=== PATIENT | female | born 1995 | race Two or more races ===

== ENCOUNTER → 2017-01-09 | Day surgery (SDC) | payer OTHER ==
[~2017-01-09] MED LIST: FERROUS SU324 ( 65 ) PO; FISH OIL 1,0001 CA2 PO; IBUPROFEN PO
== END | disposition home or self-care (01) ==
LOC: CSUR 10:16
DX: L60.0 Ingrowing nail (principal); Z53.09 Procedure and treatment not carried out because of other contraindication
CPT/HCPCS: 84703

== ENCOUNTER → 2017-01-25 | Day surgery (SDC) | payer OTHER ==
--- NOTE | ~2017-01-25 | OR ---
Unit #: [id number] #: [id number] Patient: ROBERT CHOU [id number] [facility] [address] [place], [place] [address] [id number] O MR#: [id number] NAME: ROBERT CHOU ROOM: Date of Procedure: 01/25/2017 Admission Date: 01/25/2017 Surgeon: Abraham Diaz M.D. : 1995 Attending Physician: Abraham Diaz M.D. Primary Care Physician: Eliza Whitehead M.D. OPERATIVE REPORT PREOPERATIVE DIAGNOSIS Bilateral ingrown great toenail. POSTOPERATIVE DIAGNOSIS Bilateral ingrown great toenail. PROCEDURE PERFORMED Bilateral wedge resection medial aspect great toenails. ANESTHESIA Monitored anesthesia with local anesthetic. ESTIMATED BLOOD LOSS Less than 10 mL. INDICATIONS FOR PROCEDURE A 21-year-old woman, who presented to the office with the medial aspect of both great toenails ingrown. They were swollen, tender, and erythematous. Her reports that she had been recently and when trying to cut her toenails, cut them short on the medial aspect. DESCRIPTION OF PROCEDURE The patient was admitted to [facility], positively identified, transported to the procedure room and after appropriate monitoring and positioning, she was sedated by the nurse direct marketing specialist and both feet were prepped and draped in usual sterile fashion. Using a 30-gauge needle, local anesthetic of 1% lidocaine plain was infiltrated at the base of both great toes and then a 25-gauge needle was used to produce a bilateral great toe block. At each toe on the medial side where it was ingrown, a mosquito hemostat was used to elevate the lateral nail plate all the way down to the origin. Once this was elevated, a straight iris scissors used to excise the ingrown portion of the nail. The nail plate was treated with phenol and alcohol to prevent regrowth. We ensured that the edge of the nail was elevated on both sides above the nail fold to prevent recurrence. This was done on both sides. There was excellent hemostasis. Neosporin was placed over the toe followed by Adaptic 1%, Destini roll, and then 1-inch Coban. Sponges and needle counts were correct x3. The patient tolerated the procedure well and transported to recovery in stable condition. Findings and postoperative instructions were discussed with her family with the aid of an accounting officer. Unit #: [id number] #: [id number] Patient: ROBERT CHOU Dictated by... Negrito Bacon/rashaad TD: 01/26/2017 05:12 JOB #: [id number] OPERATIVE REPORT Page 1 of 1 X Abraham Diaz MD PROCEDURE OPERATIVE NOTE
== END | disposition home or self-care (01) ==
LOC: CSUR 08:47
DX: L60.0 Ingrowing nail (principal)
CPT/HCPCS: 84703; J2250; J3010